=== PATIENT | male | born 1985 | race Caucasian/White ===

== ENCOUNTER 2019-04-18 02:16 | Emergency (ER) | payer BC ==
[2019-04-18] MEDS ORDERED: Ketorolac 30 MG/ML SDV IM ONE (02:30)
[2019-04-18] MEDS ORDERED: Sodium Chloride 0.9% 1,000 ML IV ONE (02:55)
[2019-04-18] MEDS ORDERED: MVI, Adult with Vitamin K 10 ML, Thiamine 100 MG, Folic Acid 1 MG in Sodium Chloride 0.... IV ONE ×4 (02:55)
--- NOTE | 2019-04-18 03:10 | EDM.PDOC ---
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 [No Known Home Meds] 04/18/19 [History] Past Medical History - Past Health History Medical/Surgical History: Denies Medical/Surgical History Social & Family History - Family History Family Medical History: Noncontributory - Tobacco Use Smoking Status *Q: Never Smoker - Recreational Drug Use Recreational Drug Use: No ED ROS ENT - Review of Systems Review Of Systems: Comprehensive ROS is negative, except as noted in HPI. Constitutional: Reports: Fever, Chills, Malaise HEENT: Reports: No Symptoms Respiratory: Reports: No Symptoms, Cough Cardiovascular: Reports: No Symptoms Endocrine: Reports: No Symptoms GI/Abdominal: Reports: No Symptoms, Abdominal Pain, Nausea, Vomiting : Reports: No Symptoms Musculoskeletal: Reports: No Symptoms, Muscle Pain Skin: Reports: No Symptoms Neurological: Reports: No Symptoms Psychiatric: Reports: No Symptoms Hematologic/Lymphatic: Reports: No Symptoms Immunologic: Reports: No Symptoms ED EXAM, ENT - Physical Exam Exam: Not Obtained Exam Limited By: No Limitations General Appearance: Alert, WD/WN, No Apparent Distress, Mild Distress Eye Exam: Bilateral Eye: Normal Fundi, Normal Inspection, PERRL Ears: Normal External Exam, Normal Canal, Hearing Grossly Normal, Normal TMs Nose: Normal Inspection, Normal Mucousa Mouth/Throat: Normal Inspection, Normal Gums, Normal Lips, Normal Teeth Head: Atraumatic, Normocephalic Neck: Normal Inspection, Supple, Non-Tender Respiratory/Chest: No Respiratory Distress, Lungs Clear, Normal Breath Sounds, No Accessory Muscle Use, Chest Non-Tender Cardiovascular: Normal Peripheral Pulses, Regular Rate, Rhythm GI/Abdominal: Normal Bowel Sounds, Non-Tender, No Organomegaly, No Distention, No Abnormal Bruit (Male) Exam: Normal Inspection Back: Normal Inspection, Full Range of Motion Extremities: Normal Inspection, Normal Range of Motion, No Pedal Edema Neurological: Alert, Oriented, CN II-XII Intact, Normal Cognition, Normal Reflexes, Slow to Respond Psychiatric: Normal Mood Skin: Warm, Dry, Intact, Normal Color Course - Vital Signs Last Recorded V/S: Last Vital Signs Temp 100.5 F 04/18/19 02:20 Pulse 112 H 04/18/19 02:20 Resp 18 04/18/19 02:20 BP 109/66 04/18/19 02:20 Pulse Ox 95 04/18/19 02:20 - Orders/Labs/Meds Orders: Active Orders 24 hr Category Date Time Status CULTURE STREP A CONFIRMATION [] Stat Lab 04/18/19 02:33 Results STREP SCRN A RAPID W CULT CONF [] Stat Lab 04/18/19 02:33 Results MVI, Adult with Vitamin K [Infuvite Adult] 10 ml Med 04/18/19 02:55 Active Thiamine [Vitamin B-1] 100 mg Folic Acid 1 mg Sodium Chloride 0.9% [Normal Saline] 1,000 ml IV ONETIME Sodium Chloride 0.9% [Normal Saline] 1,000 ml Med 04/18/19 02:55 Active IV .Bolus Medication Orders Multivitamins/Minerals 10 ml/Thiamine HCl 100 mg/ Folic Acid 1 mg/ Sodium Chloride 1,011.2 mls @ 1,000 minidrops/hr IV ONETIME ONE Stop: 04/20/19 15:35 Sodium Chloride (Normal Saline) 1,000 mls @ 1,000 mls/hr IV .Bolus ONE Stop: 04/18/19 03:54 Meds: Medications Generic Name Dose Route Start Last Admin Trade Name Freq PRN Reason Stop Dose Admin Multivitamins/Minerals 10 ml/ 1,011.2 mls @ 1,000 minidrops/hr 04/18/19 02:55 Thiamine HCl 100 mg/ Folic IV 04/20/19 15:35 Acid 1 mg/ Sodium Chloride ONETIME ONE Sodium Chloride 1,000 mls @ 1,000 mls/hr 04/18/19 02:55 Normal Saline IV 04/18/19 03:54 .Bolus ONE Discontinued Medications Generic Name Dose Route Start Last Admin Trade Name Freq PRN Reason Stop Dose Admin Ketorolac Tromethamine 30 mg 04/18/19 02:30 04/18/19 02:36 Toradol IM 04/18/19 02:31 30 mg ONETIME ONE Administration Departure - Departure Time of Disposition: 03:10 Disposition: Home, Self-Care 01 Condition: Good Clinical Impression: Influenza B - Discharge Information Referrals: PCP,Not In Area [Primary Care Provider] - Forms: ED Department Discharge Sepsis Event Note - Evaluation Sepsis Screening Result: No Definite Risk - Focused Exam Vital Signs: Vital Signs Temp Pulse Resp BP Pulse Ox 04/18/19 02:20 100.5 F 112 H 18 109/66 95 Date Exam was Performed: 04/18/19 Time Exam was Performed: 03:05 - My Orders Last 24 Hours: My Active Orders 04/18/19 02:33 CULTURE STREP A CONFIRMATION [RM] Stat STREP SCRN A RAPID W CULT CONF [] Stat 04/18/19 02:55 MVI, Adult with Vitamin K [Infuvite Adult] 10 ml Thiamine [Vitamin B-1] 100 mg Folic Acid 1 mg Sodium Chloride 0.9% [Normal Saline] 1,000 ml IV ONETIME Sodium Chloride 0.9% [Normal Saline] 1,000 ml IV .Bolus - Assessment/Plan Last 24 Hours: My Active Orders 04/18/19 02:33 CULTURE STREP A CONFIRMATION [RM] Stat STREP SCRN A RAPID W CULT CONF [RM] Stat 04/18/19 02:55 MVI, Adult with Vitamin K [Infuvite Adult] 10 ml Thiamine [Vitamin B-1] 100 mg Folic Acid 1 mg Sodium Chloride 0.9% [Normal Saline] 1,000 ml IV ONETIME Sodium Chloride 0.9% [Normal Saline] 1,000 ml IV .Bolus
== END 2019-04-18 04:29 | disposition home or self-care (01) ==
LOC: MW.ED 02:16
DX: J10.1 Influenza due to other identified influenza virus with other respiratory manifestations (principal)
CPT/HCPCS: 87081; 87804; 87880; 96365; 96372; 99283; J1885; J3411; J7030